=== PATIENT | female | born 1995 | race Caucasian/White ===

== ENCOUNTER 2023-02-24 10:23 | Outpatient (CLI) | payer OTHER, SELFPAY | END 2023-02-24 10:24 | disposition home or self-care (01) | PROVIDERS: PCP Nurse Practitioner Family; Visit Provider Nurse Practitioner Family | DX: Z00.00 Encounter for general adult medical examination without abnormal findings (principal); R20.2 Paresthesia of skin; Z13.6 Encounter for screening for cardiovascular disorders; Z13.228 Encounter for screening for other metabolic disorders | CPT/HCPCS: 80048; 80061; 82607; 83695; 84443 ==

== ENCOUNTER 2024-05-09 10:43 | Outpatient (CLI) | payer OTHER, SELFPAY | END 2024-05-09 10:44 | disposition home or self-care (01) | PROVIDERS: PCP Nurse Practitioner Family; Visit Provider Nurse Practitioner Family | DX: Z12.4 Encounter for screening for malignant neoplasm of cervix (principal); Z13.29 Encounter for screening for other suspected endocrine disorder | CPT/HCPCS: 84443; 87624; 87625; 88141; 88142 ==